=== PATIENT | female | born 1955 | race Two or more races ===

== ENCOUNTER 2021-07-27 08:00 | Outpatient (CLI) | payer OTHER | END 2021-07-27 08:30 | disposition home or self-care (01) | LOC: PPH VACUNA 08:00 | PROVIDERS: ATTEND Emergency Medicine Pediatric Emergency Medicine | DX: Z23 Encounter for immunization (principal) ==

== ENCOUNTER → 2022-10-13 | Outpatient (CLI) | payer OTHER | END | disposition home or self-care (01) | LOC: RAD 10:47 | PROVIDERS: ATTEND General Practice | DX: R06.02 Shortness of breath (principal); J45.909 Unspecified asthma, uncomplicated; R05.3 Chronic cough ==

== ENCOUNTER 2022-12-22 15:04 | Outpatient (CLI) | payer OTHER | END 2022-12-22 15:09 | disposition home or self-care (01) | LOC: RAD 15:04 | PROVIDERS: ATTEND General Practice | DX: M25.572 Pain in left ankle and joints of left foot (principal); M79.605 Pain in left leg; M25.562 Pain in left knee; S89.92XA Unspecified injury of left lower leg, initial encounter ==

== ENCOUNTER 2023-01-18 12:38 | Outpatient (CLI) | payer OTHER | END 2023-01-18 12:41 | disposition home or self-care (01) | LOC: RAD 12:38 | PROVIDERS: ATTEND Orthopaedic Surgery | DX: M16.0 Bilateral primary osteoarthritis of hip (principal); M17.0 Bilateral primary osteoarthritis of knee ==

== ENCOUNTER → 2023-06-25 | Outpatient (CLI) | payer OTHER | END | disposition home or self-care (01) | LOC: MAMO-SONO 11:10 | PROVIDERS: ATTEND General Practice | DX: Z12.31 Encounter for screening mammogram for malignant neoplasm of breast (principal); N64.4 Mastodynia ==

== ENCOUNTER 2023-06-29 12:52 | Outpatient (CLI) | payer OTHER | END 2023-06-29 12:53 | disposition home or self-care (01) | LOC: NUCLEAR 12:52 | PROVIDERS: ATTEND General Practice | DX: M81.0 Age-related osteoporosis without current pathological fracture (principal) ==

== ENCOUNTER 2024-04-04 15:31 | Outpatient (CLI) | payer OTHER | END 2024-04-04 15:35 | disposition home or self-care (01) | LOC: SONOGRAMA 15:31 | PROVIDERS: ATTEND Internal Medicine Endocrinology, Diabetes & Metabolism | DX: E04.2 Nontoxic multinodular goiter (principal) ==